=== PATIENT | female | born 1995 | race Caucasian/White ===

== ENCOUNTER 2023-08-25 18:27 | Emergency (ER) | payer OTHER, MEDICAID ==
[~2023-08-25] VITALS: Ht 157.5 cm; Wt 87.0 kg
[~2023-08-25 18:27] MED LIST: ACET-1008 PO; BUSP5TAB3; DEXT20CA4 PO; PRAZ1CAP5 PO; SERT-434 PO
[2023-08-25 18:38] VITALS: BP 140/94; PULSE 82; RESP 16; TEMP 98; O2SAT 100
[2023-08-25] MEDS: normal saline 1000ML IV soln IVB ONE (20:17)
[2023-08-25] MEDS: morphine 4 MG/ML inj SYRINge IV ONE (20:34)
[2023-08-25] MEDS: ibuprofen tablet 400 MG TABLET PO ONE (20:40)
[2023-08-25 21:01] LABS: BASOPHILS # (AUTO) 0.1 X10'3 (0-0.2); EOSINOPHILS # (AUTO) 0.1 X10'3 (0-0.9); EOSINOPHILS % (AUTO) 0.6 % (0-6); HEMATOCRIT 40.6 % (35.0-45.0); HEMOGLOBIN 13.6 g/dl (12.0-16.0); LYMPHOCYTES # (AUTO) 3.1 X10'3 (1.1-4.8); LYMPHOCYTES % (AUTO) 30.1 % (21-51); MEAN CORPUSCULAR HEMOGLOBIN 27.2 PG (27.0-31.0); MEAN CORPUSCULAR HGB CONC 33.4 g/dL (33.0-36.5); MEAN CORPUSCULAR VOLUME 81.3 FL (78-98); MEAN PLATELET VOLUME 8.8 FL (7.4-10.4); MONOCYTES # (AUTO) 0.8 X10'3 (0-0.9); MONOCYTES % (AUTO) 7.9 % (2-12); NEUTROPHILS # (AUTO) 6.3 X10'3 (1.8-7.7); NEUTROPHILS % (AUTO) 60.4 % (42-75); PLATELET COUNT 250 X10'3 (140-440); RED BLOOD COUNT 4.99 X10'6 (4.20-5.60); RED CELL DISTRIBUTION WIDTH 14.2 % (11.5-14.5); WHITE BLOOD COUNT 10.4 X10'3 (4.5-11.0)
[2023-08-25 21:08] LABS: BILIRUBIN,URINE NEGATIVE (Neg); CLARITY,URINE CLEAR (Clear); COLOR,URINE YELLOW (Yellow); GLUCOSE, URINE NEGATIVE (Neg); KETONES,URINE NEGATIVE (Neg); LEUKOCYTE ESTERASE ,URINE NEGATIVE (Neg); NITRITES, URINE NEGATIVE (Neg); OCCULT BLOOD,URINE NEGATIVE (Neg); PH,URINE 6.5 (4.8-8.0); PROTEIN,URINE NEGATIVE (Neg); UROBILINOGEN,URINE 0.2 E.U/dL (0.2-1.0)
[2023-08-25 21:11] LABS: CREATINE KINASE 228 U/L (26-192); LIPASE 44 U/L (16-77)
[2023-08-25 21:20] LABS: UA COLLECTION TYPE CLN CATCH MIDSTREAM
[2023-08-25 21:24] LABS: HCG SERUM QL NEGATIVE
[2023-08-25 21:30] LABS: URINE AMPHETAMINE SCREEN POSITIVE (Neg); URINE BARBITUATE SCREEN NEGATIVE (Neg); URINE BENZODIAZEPINES SCREEN NEGATIVE (Neg); URINE CANNABINOID SCREEN NEGATIVE (Neg); URINE COCAINE SCREEN NEGATIVE (Neg); URINE METHADONE SCREEN NEGATIVE (Neg); URINE OPIATE SCREEN NEGATIVE (Neg); URINE PHENCYCLIDINE SCREEN NEGATIVE (Neg)
== END 2023-08-25 21:06 | disposition home or self-care (01) ==
LOC: ER 18:28
DX: S00.03XA Contusion of scalp, initial encounter (principal); S66.811A Strain of other specified muscles, fascia and tendons at wrist and hand level, right hand, initial encounter; S46.811A Strain of other muscles, fascia and tendons at shoulder and upper arm level, right arm, initial encounter; S16.1XXA Strain of muscle, fascia and tendon at neck level, initial encounter; Z88.8 Allergy status to other drugs, medicaments and biological substances; Z79.899 Other long term (current) drug therapy; V89.2XXA Person injured in unspecified motor-vehicle accident, traffic, initial encounter; Y93.89 Activity, other specified; Y92.89 Other specified places as the place of occurrence of the external cause; Y99.8 Other external cause status
CPT/HCPCS: 36415; 72125; 73030; 73080; 73110; 73130; 80305; 81003; 82550; 83690; 84703; 85025; 99284